=== PATIENT | male | born 2000 | race Caucasian/White ===

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

== ENCOUNTER → 2021-09-22 | Outpatient (CLI) | payer OTHER ==
[2021-09-26 12:11] LABS: D001-IGE D PTERONYSSINUS <0.10 kU/L (Class 0); E001-IGE CAT DANDER <0.10 kU/L (Class 0); E005-IGE DOG DANDER <0.10 kU/L (Class 0); G006-IGE TIMOTHY GRASS <0.10 kU/L (Class 0); IMMUNOGLOBULIN E, TOTAL 4 IU/mL (6-495); M002-IGE CLADOSPORIUM HERBARUM <0.10 kU/L (Class 0); M006-IGE ALTERNARIA ALTERNATA <0.10 kU/L (Class 0); T001-IGE MAPLE/BOX ELDER <0.10 kU/L (Class 0); T003-IGE COMMON SILVER BIRCH <0.10 kU/L (Class 0); T007-IGE OAK, WHITE <0.10 kU/L (Class 0); T010-IGE WALNUT <0.10 kU/L (Class 0)
[2021-09-26 13:11] LABS: F001-IGE EGG WHITE <0.10 kU/L (Class 0); F002-IGE MILK <0.10 kU/L (Class 0); F003-IGE CODFISH <0.10 kU/L (Class 0); F004-IGE WHEAT <0.10 kU/L (Class 0); F010-IGE SESAME SEED <0.10 kU/L (Class 0); F013-IGE PEANUT <0.10 kU/L (Class 0); F014-IGE SOYBEAN <0.10 kU/L (Class 0); F017-IGE HAZELNUT (FILBERT) <0.10 kU/L (Class 0); F020-IGE ALMOND <0.10 kU/L (Class 0); F024-IGE SHRIMP <0.10 kU/L (Class 0); F040-IGE TUNA <0.10 kU/L (Class 0); F041-IGE SALMON <0.10 kU/L (Class 0); F202-IGE CASHEW NUT <0.10 kU/L (Class 0); F256-IGE WALNUT <0.10 kU/L (Class 0); F338-IGE SCALLOP <0.10 kU/L (Class 0)
[2021-09-26 18:06] LABS: M001-IGE PENICILLIUM CHRYSOGEN 32.8 ug/mL (0.0-1.9)
== END | disposition home or self-care (01) ==
LOC: LAB SHORT 18:06 → LAB 18:06
PROVIDERS: Family Medicine
DX: J30.9 Allergic rhinitis, unspecified (principal)
CPT/HCPCS: 86001; 86003